=== PATIENT | female | born 1965 | race African-American/Black ===

== ENCOUNTER → 2016-06-30 | Day surgery (SDC) | payer OTHER ==
[~2016-06-30] MED LIST: AMLO5TAB2 PO; AMOX500T PO; AMOXACILLIN; ASPI-482 PO; ASPI81TA2 PO; ATOR10TA PO; CARV25TA PO; CHLO200T2 PO; CYCL5TAB; EPHEDRINE PF IN SALINE 50 MG/5 ML DISP.SYRIN. IV ONE; ESCI10TA10 PO; ESTR0.62 PO; FENTANYL PF 100 MCG/2 ML VIAL. IV PRN; FLUT16SP2 NS; FURO-68 PO; HYDR25CA PO; HYDROMORPHONE 2 MG/ML VIAL. IV PRN; IBUP-1060 PO; IV RINGERS,LACTATED 1000ML 1,000 ML IV SCH; LIDOCAINE 1% 1 ML SYRINGE. ID PRN; LIDOCAINE 2% PF Vial for OR 5 ML VIAL. ONE; LOSA50TA2 PO; METO50TA2 PO; MORPHINE SULFATE 2 MG/ML DISP.SYRIN. IV PRN; OMEP40CA5 PO; OXCA300T PO; OXYC-250 PO; PANT40TA3 PO; PROCHLORPERAZINE 10 MG/2 ML VIAL. IV PRN; PROPOFOL 20 ML IV ONE; ROPI0.252 PO; ROPI0.5T2; SAXA5TAB PO; SENN1TAB9 PO; SPIR25TA3 PO; SUCR1TAB29 PO; THORAZINE; TOPI50TA38 PO; TRAZ100T12 PO; VARE1TAB5 PO; ZOLP10TA4 PO
--- NOTE | 2016-06-30 08:59 | PDOC1 ---
HISTORY & PHYSICAL H&P Sharda Mac [id number] 1965 06/11/2016 01:40 PM 04/13 nPicker [facility], [facility] OUR PATIENTS COME FIRST [address] [place], [place] [id number] Ph. [phone] Patient: Sharda Mac Date of : 1965 Date: 06/11/2016 1:40 PM Visit Type: Office Visit This 51 year old female presents for Gastric Ulcer. History of Present Illness: 1. Gastric Ulcer Patient is here for followup for her gastric ulcer. Patient has not been having any abdominal pain, nausea or vomiting. Patient has been taking her medication. Patient has been off all NSAID's. Discussed the need to schedule for repeat EGD to document the healing of gastric ulcer. INTAKE COMMENTS: Intake Comments: Nurse Note: the pt is here today for a follow-up for a Gastric Ulcer. PROBLEM LIST: Problem Description Onset Date Tendinitis of left rotator cuff 02/22/2015 Primary osteoarthritis of left knee 02/12/2015 Left knee pain 02/12/2015 Chronic gastric ulcer 06/12/2015 Controlled type 2 diabetes mellitus with complication, without long-term current use of insulin 10/26/2015 Benign essential hypertension 08/09/2010 Hyperlipidemia 08/09/2010 Congestive heart failure 08/09/2010 Acute renal failure syndrome 08/09/2010 Sleep apnea 06/18/2012 Acute bacterial sinusitis 03/23/2015 Diabetes mellitus type II 08/09/2010 Shoulder pain, left 02/22/2015 Tobacco dependence syndrome 04/20/2012 Smoking addiction 07/20/2014 Tremor of both hands 10/05/2015 Chronic renal impairment 10/08/2011 Morbid obesity 12/10/2011 PAST MEDICAL/SURGICAL HISTORY (Detailed) Disease/disorder Onset Date Management Date Comments Hysterectomy 2003 chronic gastritis EGD with biopsy 01/19/2014 Congestive heart failure 2010 cardiac catheterization Diabetes Diverticulosis 02/25/2011 colonoscopy with biopsy 02/25/2011 esophagitis gastric erosion at the pyloric channel gastric ulcer Gastric Ulcer EGD w/Biopsy 05/01/2014 Hiatal hernia Hyperlipidemia Hypertension DIAGNOSTICS HISTORY: Test Ordered Interpretation Result completed COLONOSCOPY AND BIOPSY 02/25/2011 Abnormal Imp: Diverticulosis. No polyps. 02/25 [facility] GI ENDOSCOPY, DIAGNOSIS 08/24/2012 Imp: Duodenal ulcer in the pyloric channel area closer to the duodenal surface. Gastritis. Esopahgitis. BX: Diffuse marked antral gastritis. Positive for Helicobacter pylori. 09/02/2012 US EXAM, ABDOM, COMPLETE 10/11/2012 Imp: No significant sonographic abnormality of the abdomen is seen. 11/01/2012 EGD 02/14/2014 abnormal Imp: Persistent gastric ulcer, reflux esophagitis, BX: reactive gastropathy with ulceration and mild chronic inflammation 05/01/2014 EGD 01/29/2015 abnormal Imp: Small hiatal hernia. Mild reflux esophagitis. Antral ulcer appears to be in a healing stage. Antral gastritis. BX: Chronic Gastritis, mild. Segment of acute inflammatory exudate consistent with Ulcer. EGD 12/18/2015 abnormal Imp: Persistent antral ulcers difficult to heal on a intensive therapy. Reflux esophagitis. BX: Segments of acute inflammatory exudate and strips of gastric foveolar epithelium, consistent with gastric ulcer. 01/21/2016 Test Ordered Ordering Comments Modifier COLONOSCOPY AND BIOPSY 02/25/2011 Gastroenterology UPPA GI ENDOSCOPY, DIAGNOSIS 08/24/2012 US EXAM, ABDOM, COMPLETE 10/11/2012 EGD 02/14/2014 EGD 01/29/2015 EGD 12/18/2015 Patient is postmenopausal. Medications (Active): Started Medication Directions Instruction Stopped 04/15/2016 amlodipine 5 mg tablet TAKE 1 TABLET BY ORAL ROUTE EVERY DAY 04/15/2016 Aspir-81 81 mg tablet,delayed release take 1 tablet (81MG) by oral route every day 04/15/2016 Carafate 1 gram tablet TAKE 1 TABLET BY ORAL ROUTE 3 TIMES EVERY DAY ON AN EMPTY STOMACH 1 HOUR BEFORE MEALS AND AT BEDTIME 04/15/2016 Coreg 25 mg tablet TAKE 1 TABLET BY ORAL ROUTE 2 TIMES EVERY DAY WITH FOOD 04/15/2016 Cozaar 50 mg tablet TAKE 1 TABLET (50MG) BY ORAL ROUTE 2 TIMES EVERY DAY 04/15/2016 cyclobenzaprine 5 mg tablet take 1 tablet by ORAL route 2 times every day 04/15/2016 Flonase 50 mcg/actuation nasal spray,suspension spray 1 spray by intranasal route 2 times every day in each nostril 04/15/2016 Lasix 40 mg tablet TAKE 1 TABLET (40MG) BY ORAL ROUTE EVERY DAY 04/15/2016 Lexapro 10 mg tablet TAKE 1 TABLET (10MG) BY ORAL ROUTE EVERY DAY 04/15/2016 Lipitor 10 mg tablet TAKE 1 TABLET (10MG) BY ORAL ROUTE EVERY DAY 04/15/2016 Maxalt 10 mg tablet take 1 tablet by oral route once, may repeat at 2 hour intervals; do not exceed 30 mg in 24 hours 04/15/2016 omeprazole 40 mg capsule,delayed release TAKE 1 CAPSULE BY ORAL ROUTE EVERY DAY BEFORE A MEAL 04/15/2016 Onglyza 5 mg tablet TAKE 1 TABLET (5MG) BY ORAL ROUTE EVERY DAY 06/10/2016 Percocet 10 mg-325 mg tablet take 1 tablet by oral route [id number] as needed for pain 07/05/2016 04/15/2016 Senna-S 8.6 mg-50 mg tablet TAKE 2 TABLET BY ORAL ROUTE EVERY DAY 04/15/2016 spironolactone 25 mg tablet TAKE 1 TABLET (25MG) BY ORAL ROUTE EVERY DAY 04/15/2016 Voltaren 1 % topical gel apply 4 Gram by Topical route 4 times every day please fill as generic 04/15/2016 zolpidem 10 mg tablet take 1 tablet (10MG) by oral route every day at bedtime Allergies: Ingredient Reaction Medication Name Comment VALSARTAN Diovan LISINOPRIL Cough PRINIVIL REVIEW OF SYSTEMS System Neg/Pos Details Constitutional Negative Chills, fever, malaise and weight loss. ENMT Negative Sore throat. Eyes Negative Double vision. Respiratory Negative Dyspnea and wheezing. Cardio Negative Chest pain and irregular heartbeat/palpitations. GI Positive See HPI. GI Negative See HPI. Negative Dysuria and hematuria. Endocrine Negative Cold intolerance and heat intolerance. Psych Negative Anxiety. Integumentary Negative Hives and rash. MS Negative Joint pain. Cuco/Lymph Negative Easy bleeding and easy bruising. Allergic/Immuno Negative Animals at home and food allergies. Reproductive Positive The patient is post-menopausal. VITAL SIGNS Time BP mm/Hg Pulse /min Resp /min Temp F Ht ft Ht in Ht cm Wt lb Wt kg BMI kg/ m2 BSA m2 O2 Sat% 1:42 PM 134/86 85 98.1 5.0 2.00 157.48 252.00 114.305 46.09 87 Time Comments 1:42 PM PCP aware of O2 Time Measured by 1:42 PM Mabel Pfeiffer PHYSICAL EXAM: Exam Findings Details Constitutional Normal Well developed. Eyes Normal Conjunctiva - Right: Normal, Left: Normal. Sclera - Right: Normal, Left: Normal. Nasopharynx Normal Lips/teeth/gums - Normal. Neck Exam Normal Inspection - Normal. Thyroid gland - Normal. Respiratory Normal Inspection - Normal. Auscultation - Normal. Cardiovascular Normal Regular rate and rhythm. No murmurs, gallops, or rubs. Vascular Normal Pulses - Carotids: Normal, Femoral: Normal, Dorsalis pedis: Normal. Abdomen Normal Inspection - Normal. Anterior palpation - No guarding. No abdominal tenderness. No hepatic enlargement. No splenic enlargement. No hernia. No Ascites. Skin Normal Inspection - Normal. Extremity Normal No edema. Psychiatric Normal Oriented to time, place, person, and situation. Appropriate mood and effect. The patient was checked out at 1:42 PM by aMbel Pfeiffer. Assessment/Plan # Detail Type Description 1. Assessment Chronic gastric ulcer without hemorrhage and without perforation (K25.7). [place] [facility] [place] Further diagnostic evaluations ordered today include(s) EGD to be performed today. She is to schedule a follow-up visit with Jarod Oconnell MD upon completion of work-up Electronically signed by: Jarod Oconnell MD 06/11/2016 04:16 PM Document generated by: Jarod Oconnell 06/11/2016 04:16 PM Corrie Rao MD, Family Practice; Ramírez Vu MD Internal Medicine; Lee Wilder MD, Internal Medicine; Sarmad Oconnell MD Internal Medicine; Jarod Oconnell MD, Gastroenterology; Wale Hill MD, Rheumatology, S. Christopher Bragg, Physical Medicine/Rehab Avinash Bryson APRN ------ 06/30/16 Patient seen and examined. No change in H&P. JAROD OCONNELL MD Jun 30, 2016 08:59
[2016-06-30 09:56] VITALS: BP 113/74
--- NOTE | 2016-06-30 10:08 | PDOC4 ---
GI OP Report - Dr. Valdez Date/Time DATE: 06/30/16 TIME: 10:07 Attending Physician Dixon Valdez MD Referring Physician Indications Follow-up of chronic gastric ulcer Pre-Op See the Anesthesia note for documentation of the administered medications Procedures Upper GI endoscopy Findings - Hiatus hernia. - LA Grade A esophagitis. - Normal stomach. - Normal examined duodenum. - No specimens collected. Plan - Discharge patient to home. - Patient has a contact number available for emergencies. The signs and symptoms of potential delayed complications were discussed with the patient. Return to normal activities tomorrow. Written discharge instructions were provided to the patient. - Resume regular diet. - Discontinue Carafate. - Continue Omeprazole 20 mg daily. - Return to my office as needed. DIXON VALDEZ MD Jun 30, 2016 10:08
== END | disposition home or self-care (01) ==
LOC: ENDOS 08:28
PROVIDERS: ATTEND Internal Medicine Gastroenterology
DX: K44.9 Diaphragmatic hernia without obstruction or gangrene (principal); K20.9 Esophagitis, unspecified; K25.7 Chronic gastric ulcer without hemorrhage or perforation; E78.00 Pure hypercholesterolemia, unspecified; I10 Essential (primary) hypertension; E66.9 Obesity, unspecified; D41.9 Neoplasm of uncertain behavior of unspecified urinary organ; D32.9 Benign neoplasm of meninges, unspecified; E11.9 Type 2 diabetes mellitus without complications; F20.9 Schizophrenia, unspecified; D64.9 Anemia, unspecified; Z90.710 Acquired absence of both cervix and uterus; Z90.49 Acquired absence of other specified parts of digestive tract; Z98.51 Tubal ligation status
CPT/HCPCS: 43235; 82947; J2704

== ENCOUNTER → 2016-09-04 | Outpatient (CLI) | payer OTHER ==
[2016-06-30 09:56] VITALS: BP 113/74
[~2016-09-04] MED LIST changes: -EPHEDRINE PF IN SALINE 50 MG/5 ML DISP.SYRIN. IV ONE; -FENTANYL PF 100 MCG/2 ML VIAL. IV PRN; -HYDROMORPHONE 2 MG/ML VIAL. IV PRN; -IV RINGERS,LACTATED 1000ML 1,000 ML IV SCH; -LIDOCAINE 1% 1 ML SYRINGE. ID PRN; -LIDOCAINE 2% PF Vial for OR 5 ML VIAL. ONE; -MORPHINE SULFATE 2 MG/ML DISP.SYRIN. IV PRN; -PROCHLORPERAZINE 10 MG/2 ML VIAL. IV PRN; -PROPOFOL 20 ML IV ONE
--- NOTE | 2016-09-04 21:58 | EEG ---
DATE OF SERVICE: 09/04/2016 EEG NUMBER: [id number] OBJECTIVE: This is a 51-year-old -[place] female patient with history of abnormal movements. EEG was requested to evaluate her cerebral activity and to help rule out seizure. METHODS: Twenty electrodes were applied according to the international 10-20 electrode placement system. EKG monitoring, hyperventilation, intermittent photic stimulation, monopolar and bipolar montages are routinely utilized. The record was obtained on a digital system with video monitoring. FINDINGS: 1. Background: The patient was recorded in the awake and drowsy states. No sleep state was recorded. The overall background amplitude is 10-20 microvolts. A posterior dominant rhythm of 8 Hz is observed. 2. Abnormalities: No specific epileptiform discharge or electrographic seizure is seen. No focal or diffuse slowing. 3. Activation: Hyperventilation was performed with poor efforts. Intermittent photic stimulation was performed with photic driving. No specific epileptiform discharge or electrographic seizure induced by hyperventilation or intermittent photic stimulation. IMPRESSION: This EEG is within the normal limits of the study for the awake and drowsy states. No sleep state was recorded. No focal, lateralizing, specific epileptiform discharge or electrographic seizure is seen. However, a normal EEG does not rule out seizure. CORA FREIRE MD DR: SOURAV/julio césar JOB#: [id number] / [id number]
== END | disposition home or self-care (01) ==
LOC: RT 08:46
PROVIDERS: ATTEND Psychiatry & Neurology Neurology
DX: R25.1 Tremor, unspecified (principal)
CPT/HCPCS: 95816

== ENCOUNTER 2017-02-03 13:37 | Emergency (ER) | payer OTHER ==
[~2017-02-03] VITALS: Ht 157.5 cm; Wt 114.8 kg
[~2017-02-03 13:37] MED LIST changes: +ASPI-630 PO; -ASPI81TA2 PO; -ESCI10TA10 PO; +LEXAPRO10 MG PO; -OXYC-250 PO; +OXYC-328 PO; -SUCR1TAB29 PO; +SUCR1TAB35 PO
[2017-02-03 13:40] VITALS: BP 160/95
--- NOTE | 2017-02-03 14:23 | PHYS DOC ---
Past Medical History Past Medical History: CHF, Diabetes-Type II, Hypertension, Schizophrenia Past Surgical History: , Hysterectomy Additional Past Surgical Histo: BREAST BIOPSY Additional Information: 4 CIGARETTES PER DAY Alcohol Use: None Drug Use: None Adult General Chief Complaint Chief Complaint: BACK PAIN OR INJURY [facility] HPI Patient is a 51 year old female presents to the emergency department stating that she fell in the bathtub about 3:00 this morning. She is complaining of left flank pain and discomfort. She denies any urinary problems denies any blood in her urine. She denies any spinal tenderness. Patient does state that she took a Percocet for the pain and discomfort. She denies any numbness or tingling down the lower extremities. Patient does ambulate with O2 at home. Review of Systems Review of Systems Constitutional: Denies fever or chills [] Eyes: Denies change in visual acuity, redness, or eye pain [] HENT: Denies nasal congestion or sore throat [] Respiratory: Denies cough or shortness of breath [] Cardiovascular: No additional information not addressed in HPI [] GI: Denies abdominal pain, nausea, vomiting, bloody stools or diarrhea [] : Denies dysuria or hematuria [] Musculoskeletal: left flank pain Integument: Denies rash or skin lesions [] Neurologic: Denies headache, focal weakness or sensory changes [] Endocrine: Denies polyuria or polydipsia [] Allergies Allergies Allergies Coded Allergies Type Severity Reaction Last Updated Verified No Known Drug Allergies 06/30/16 No Physical Exam Physical Exam Constitutional: Well developed, well nourished, no acute distress, non-toxic appearance. [] HENT: Normocephalic, atraumatic, bilateral external ears normal, oropharynx moist, no oral exudates, nose normal. [] Eyes: PERRLA, EOMI, conjunctiva normal, no discharge. [] Neck: Normal range of motion, no tenderness, supple, no stridor. [] Cardiovascular:Heart rate regular rhythm, no murmur [] Lungs & Thorax: Bilateral breath sounds clear to auscultation [] Skin: Warm, dry, no erythema, no rash. [] Back: No cervical spine, thoracic spine or lumbar spine tenderness, no crepitus no deformities and no step-offs noted. Left CVA tenderness. [] Extremities: No tenderness, no cyanosis, no clubbing, ROM intact, no edema. [] Neurologic: Alert and oriented X 3, normal motor function, normal sensory function, no focal deficits noted. [] Psychologic: Affect normal, judgement normal, mood normal. [] Current Patient Data Vital Signs Vital Signs Date Time Temp Pulse Resp B/P (MAP) Pulse Ox O2 Delivery O2 Flow Rate FiO2 02/03/17 13:40 98.8 81 20 93 Nasal Cannula 2.0 98.8 Lab Values Laboratory Tests Test 02/03/17 14:28 Urine Collection Type Unknown Urine Color Yellow Urine Clarity Clear Urine pH 6.0 Urine Specific [place] <=1.005 Urine Protein Negative mg/dL (NEG-TRACE) Urine Glucose (UA) Negative mg/dL (NEG) Urine Ketones (Stick) Negative mg/dL (NEG) Urine Blood Negative (NEG) Urine Nitrite Negative (NEG) Urine Bilirubin Negative (NEG) Urine Urobilinogen Dipstick 0.2 mg/dL (0.2 mg/dL) Urine Leukocyte Esterase Negative (NEG) Urine RBC Occ /HPF (0-2) Urine WBC Occ /HPF (0-4) Urine Squamous Epithelial Cells Few /LPF Urine Bacteria 0 /HPF (0-FEW) EKG EKG [] Radiology/Procedures Radiology/Procedures [] Course & Med Decision Making Course & Med Decision Making Pertinent Labs and Imaging studies reviewed. (See chart for details) Urine was negative for blood or leukocyte Estrace. Patient will be discharged home with recommendations to use her pain medication Percocet that she hasn't home. She was also encouraged to use ibuprofen to help with inflammation and pain. She was recommended to use ice packs on 20 minutes off 20 minutes several times a day. She'll be provided with Flexeril 5 mg. She was instructed that this medication will cause extreme drowsiness do not take any be alert and oriented. She was also instructed that this medication will cause increased pulse. Patient will be discharged home with recommendations to follow-up with her primary care physician next 7-10 days. Patient agrees with discharge instructions treatment regimens and follow-up recommendations. [] Dragon Disclaimer Dragon Disclaimer This electronic medical record was generated, in whole or in part, using a voice recognition dictation system. Departure Departure Impression: Primary Impression: Left flank pain Disposition: HOME, SELF-CARE Condition: STABLE Referrals: LUCAS ORTIZ MD (PCP) Patient Instructions: Flank Pain, [id number] Additional Instructions: Activity as tolerated Medication as prescribed Flexeril will cause will cause drowsiness do not take if you need to be alert and oriented ice packs on 20 minutes and off 20 minutes several times a day Followup with your primary care provider in 7-10 days Return to emergency department as needed for signs and symptoms that become worse. Scripts Cyclobenzaprine Hcl (CYCLOBENZAPRINE HCL) 5 Mg Tablet 1 TAB PO TID Y for MUSCLE SPASMS, #15 TAB Prov: TERRANCE JUAREZ APRN 02/03/17 TERRANCE JUAREZ APRN Feb 03, 2017 14:23
[2017-02-03 14:43] LABS: BILIRUBIN,URINE NEGATIVE (NEG); GLUCOSE,URINE NEGATIVE (NEG); NITRITE,URINE NEGATIVE (NEG); PROTEIN,URINE NEGATIVE (NEG-TRACE); UROBILINOGEN,URINE 0.2 mg/dL (0.2 mg/dL)
[2017-02-03 15:05] LABS: BACTERIA,URINE 0 /HPF (0-FEW); RBC,URINE OCC /HPF (0-2); SQUAMOUS EPITHELIAL CELL,UR FEW /LPF; WBC,URINE OCC /HPF (0-4)
[2017-02-03] MEDS ORDERED: CYCL5TAB PO (15:14)
== END 2017-02-03 15:20 | disposition home or self-care (01) ==
LOC: ER 13:37
DX: R10.9 Unspecified abdominal pain (principal); I11.0 Hypertensive heart disease with heart failure; I50.9 Heart failure, unspecified; F20.9 Schizophrenia, unspecified; E11.9 Type 2 diabetes mellitus without complications; Z99.81 Dependence on supplemental oxygen; F17.210 Nicotine dependence, cigarettes, uncomplicated; W18.2XXA Fall in (into) shower or empty bathtub, initial encounter; Y93.E1 Activity, personal bathing and showering; Y99.8 Other external cause status; Y92.89 Other specified places as the place of occurrence of the external cause
CPT/HCPCS: 81001; 99283

== ENCOUNTER → 2017-04-07 | Outpatient (CLI) | payer OTHER ==
[~2017-04-07] MED LIST changes: +CYCL5TAB PO; -METO50TA2 PO; +METO50TA6 PO
--- NOTE | 2017-04-07 11:43 | RAD ---
DATE: April 07, 2017 EXAM: DIGITAL SCREEN BILAT W/CAD HISTORY: Screening study. COMPARISON: 2014 and 2015 This study was interpreted with the benefit of Computerized Aided Detection (CAD). FINDINGS: The breast parenchyma is scattered and mildly dense. There are no dominant suspicious masses, suspicious microcalcifications or evidence of architectural distortion. IMPRESSION: No mammographic indicators for malignancy. BI-RADS CATEGORY: 1 NEGATIVE RECOMMENDED FOLLOW-UP: 12M 12 MONTH FOLLOW-UP PQRS compliance statement: Patient information was entered into a reminder system with a target due date for the next mammogram. Mammography is a sensitive method for finding small breast cancers, but it does not detect them all and is not a substitute for careful clinical examination. A negative mammogram does not negate a clinically suspicious finding and should not result in delay in biopsying a clinically suspicious abnormality. "Our facility is accredited by the [employer] Mammography Program." The patient's breast density may affect the ability of mammography to detect breast cancer. There are 4 categories of breast density, A, B, C and D. Breast density A means that most of the breast tissue is replaced with adipose tissue and therefore is not dense. Breast density B means that the breast tissue is mildly dense and scattered. Breast density C means that the breast tissue is heterogeneously dense. Breast density D means that the breast tissue is very dense. Breast densities especially C and D may decrease the sensitivity of mammography to detect breast cancer. Therefore, the patient may benefit from 3-D breast mammography (3D breast tomography) as a part of their screening mammogram. Insurance may or may not pay for this additional imaging. The patient's breast density based on today's mammogram is category B.
== END | disposition home or self-care (01) ==
LOC: MAMMO 09:19
PROVIDERS: ATTEND Internal Medicine
DX: Z12.31 Encounter for screening mammogram for malignant neoplasm of breast (principal)
CPT/HCPCS: G0202; 77067

== ENCOUNTER → 2018-02-24 | Outpatient (CLI) | payer OTHER ==
[~2018-02-24] MED LIST changes: -AMLO5TAB2 PO; +AMLO5TAB7 PO; -OXCA300T PO; +OXCA300T19 PO; -ROPI0.252 PO; +ROPI0.254 PO; -SPIR25TA3 PO; +SPIR25TA5 PO; +TRAZ-86 PO; -TRAZ100T12 PO
--- NOTE | 2018-02-24 09:11 | CARD ---
MR#: [id number] Date of Study: 02/24/2018 Ordering Physician: ROLAN MCKEON, Referring Physician: ROLAN MCKEON Tech: Angeli Adkins RDCS APPROVED REPORT EXAM: Two-dimensional and M-mode echocardiogram with Doppler and color Doppler. Other Information Quality : AverageHR: 71bpm Rhythm : NSR INDICATION Hypertension/HCVD 2D DIMENSIONS RVDd3.3 (2.9-3.5cm)Left Atrium(2D)3.3 (1.6-4.0cm) IVSd1.5 (0.7-1.1cm)Aortic Root(2D)2.8 (2.0-3.7cm) LVDd5.0 (3.9-5.9cm)LVOT Diameter2.2 (1.8-2.4cm) PWd1.3 (0.7-1.1cm)LVDs3.6 (2.5-4.0cm) FS (%) 28.3 %SV64.8 ml M-Mode DIMENSIONS Left Atrium(MM)3.72 (2.5-4.0cm)Aortic Root3.28 (2.2-3.7cm) Aortic Valve AoV Peak Mateo.132.7cm/sAoV VTI23.8cm AO Peak GR.7.0mmHgLVOT Peak Mateo.112.4cm/s AO Mean GR.4mmHgAVA (VMAX)3.14cm2 FRANCIE (VTI)3.00cm2 Mitral Valve MV E Rzkgujix67.7cm/sMV E Peak Gr.3mmHg MV DECEL EMES527ggIS A Njlxshmj24.5cm/s MV E Mean Gr.1mmHgE/A Ratio0.7 MV A [id number] Pulmonary Valve PV Peak Cjhbkxbu63.6cm/s Tricuspid Valve TR P. Rtelhhhi758nt/sRAP NKSJHNIR4caIf TR Peak Gr.27bkHtMQHP69dtEv Pulmonary Vein S1 Avuromob81.9cm/sD2 Hncudapl49.1cm/s PVa [id number] LEFT VENTRICLE The left ventricle is normal size. There is mild concentric left ventricular hypertrophy. The left ve ntricular systolic function is normal and the ejection fraction is within normal range. The Ejection Fraction is 50-55%. There is normal LV segmental wall motion. Transmitral Doppler flow pattern is Gra de I-abnormal relaxation pattern. RIGHT VENTRICLE The right ventricle is normal size. There is normal right ventricular wall thickness. The right ventr icular systolic function is normal. ATRIA The left atrium size is normal. The right atrium size is normal. The interatrial septum is intact wit h no evidence for an atrial septal defect or patent foramen ovale as noted on 2-D or Doppler imaging. AORTIC VALVE The aortic valve is trileaflet. The aortic valve is normal in structure and function. Doppler and Col or Flow revealed no significant aortic regurgitation. There is no significant aortic valvular stenosi s. MITRAL VALVE The mitral valve is normal in structure and function. There is no evidence of mitral valve prolapse. There is no mitral valve stenosis. Doppler and Color-flow revealed trace mitral regurgitation. TRICUSPID VALVE The tricuspid valve is normal in structure and function. Doppler and Color Flow revealed trace tricus pid regurgitation. The PA pressure was estimated at 30 mmHg. There is no tricuspid valve prolapse or vegetation. There is no tricuspid valve stenosis. PULMONIC VALVE The pulmonary valve is normal in structure and function. Doppler and Color Flow revealed no pulmonic valvular regurgitation. There is no pulmonic valvular stenosis. GREAT VESSELS The aortic root is normal in size. The ascending aorta is normal in size. PERICARDIAL EFFUSION There is no evidence of significant pericardial effusion. Critical Notification Critical Value: No <Conclusion> The left ventricle is normal size. The left ventricular systolic function is normal and the ejection fraction is within normal range. The Ejection Fraction is 50-55%. There is mild concentric left ventricular hypertrophy. There is no significant aortic valvular stenosis. Doppler and Color Flow revealed no significant aortic regurgitation. Doppler and Color-flow revealed trace mitral regurgitation. Doppler and Color Flow revealed trace tricuspid regurgitation. The PA pressure was estimated at 30 mmHg. Signed by : Kalyan Polanco MD Electronically Approved : 02/24/2018 09:10:53
== END | disposition home or self-care (01) ==
LOC: ECHO 07:55
PROVIDERS: ATTEND Internal Medicine Cardiovascular Disease
DX: I11.0 Hypertensive heart disease with heart failure (principal); I50.9 Heart failure, unspecified
CPT/HCPCS: 93306

== ENCOUNTER → 2018-06-03 | Outpatient (CLI) | payer OTHER ==
[~2018-06-03] MED LIST changes: +AMLO5TAB10 PO; -AMLO5TAB7 PO; +LOSA-73 PO; -LOSA50TA2 PO; -OXYC-328 PO; +OXYC1TAB22 PO; +SENN-162 PO; -SENN1TAB9 PO
--- NOTE | 2018-06-03 09:42 | RAD ---
DATE: 06/03/2018 EXAM: DIGITAL SCREEN BILAT W/CAD HISTORY: Routine screening COMPARISON: 04/07/2017 This study was interpreted with the benefit of Computerized Aided Detection (CAD). Breast Density: SCATTERED The breast parenchyma shows scattered fibroglandular densities. Breast parenchyma level B. FINDINGS: No new or enlarging breast densities are seen. Minimal benign type calcification is present. No suspicious microcalcifications have developed. IMPRESSION: Stable mammograms without evidence of malignancy. BI-RADS CATEGORY: 1 NEGATIVE RECOMMENDED FOLLOW-UP: 12M 12 MONTH FOLLOW-UP PQRS compliance statement: Patient information was entered into a reminder system with a target due date for the next mammogram. Mammography is a sensitive method for finding small breast cancers, but it does not detect them all and is not a substitute for careful clinical examination. A negative mammogram does not negate a clinically suspicious finding and should not result in delay in biopsying a clinically suspicious abnormality. "Our facility is accredited by the [employer] Mammography Program."
== END | disposition home or self-care (01) ==
LOC: MAMMO 08:16
PROVIDERS: ATTEND Internal Medicine
DX: Z12.31 Encounter for screening mammogram for malignant neoplasm of breast (principal)
CPT/HCPCS: 77067

== ENCOUNTER → 2018-06-30 | Outpatient (CLI) | payer OTHER ==
--- NOTE | 2018-06-30 16:06 | RAD ---
2 view study of the right hip Clinical indications: Right hip pain. Osteoarthritis. FINDINGS: No acute fracture or dislocation or lytic process is seen. No significant arthritic change is evident. IMPRESSION: No significant osseous abnormality of the right hip joint. Electronically signed by: Jose Angel Sierra MD (06/30/2018 4:03 PM) [facility]
== END | disposition home or self-care (01) ==
LOC: RAD 11:18
PROVIDERS: ATTEND Internal Medicine
DX: M25.551 Pain in right hip (principal); M19.90 Unspecified osteoarthritis, unspecified site
CPT/HCPCS: 73502

== ENCOUNTER → 2018-12-16 | Outpatient (CLI) | payer MEDICAID, OTHER ==
[~2018-12-16] MED LIST changes: -PANT40TA3 PO; +PANT40TA77 PO
--- NOTE | 2018-12-16 11:13 | RAD ---
3 views left ankle without comparison for left posterior ankle pain since September. FINDINGS: There is no fracture, dislocation, or acute osseous abnormality. Joints and soft tissues are grossly unremarkable. A small calcaneal enthesophyte is present. IMPRESSION: 1. No acute osseous abnormality. Electronically signed by: Pravin Coyle MD (12/16/2018 11:10 AM) [facility]
--- NOTE | 2018-12-16 11:14 | RAD ---
3 views of left foot without comparison for left ankle pain, possible fracture. FINDINGS: No definite fracture or acute osseous abnormality is identified. Joints and soft tissues are grossly unremarkable. No radiopaque foreign bodies are seen. Small accessory ossicle or dystrophic calcification is present medial to the head of the fifth metatarsal. IMPRESSION: 1. No acute osseous abnormality. Electronically signed by: Pravin Coyle MD (12/16/2018 11:11 AM) [facility]
== END | disposition home or self-care (01) ==
LOC: RAD 10:26
PROVIDERS: ATTEND Internal Medicine
DX: M77.52 Other enthesopathy of left foot and ankle (principal); M25.572 Pain in left ankle and joints of left foot
CPT/HCPCS: 73610; 73630

== ENCOUNTER → 2019-01-12 | Outpatient (CLI) | payer MEDICAID ==
[~2019-01-12] MED LIST changes: +OMEP40CA45 PO; -OMEP40CA5 PO
--- NOTE | 2019-01-12 15:45 | RAD ---
Examination: MRI of the left ankle without contrast History : history of chronic left ankle pain COMPARISON: None available. Technique: Multiplanar, multisequence MR imaging of the left ankle were performed without contrast. FINDINGS: Mild increased T2 signal identified in the distal Achilles tendon at its attachment to the calcaneus likely mild tendinosis. Minimal amount of fluid identified in the retrocalcaneal bursa just anterior to the attachment of the Achilles tendon. The attachment of the plantar fascia to the inferior aspect of the calcaneus grossly appears intact. The flexor tendons, peroneal tendons, anterior extensor compartment tendon grossly appears intact. The ankle mortise appears intact. The deltoid ligament, anterior and posterior tibiofibular, and posterior talofibular ligaments appear intact. There is mild increased signal identified in the anterior talofibular ligament region , however examination is limited due to motion artifact. Fat is present within the sinus tarsi. The alignment of the tarsal bones grossly appears unremarkable. IMPRESSION: 1. Increased signal identified in the distal Achilles tendon at its attachment attachment likely tendinopathy with minimal retrocalcaneal bursal fluid. 2. Minimal questionable increased signal identified in the anterior talofibular ligament region could be secondary to injury or tear at the talar attachment, best visualized on series 5 image 13. Electronically signed by: Jet Lucas MD (01/12/2019 3:42 PM) [facility]
== END | disposition home or self-care (01) ==
LOC: MRI 11:32
PROVIDERS: ATTEND Internal Medicine
DX: M25.572 Pain in left ankle and joints of left foot (principal); E78.5 Hyperlipidemia, unspecified; I11.0 Hypertensive heart disease with heart failure; I50.9 Heart failure, unspecified; N17.9 Acute kidney failure, unspecified; G47.30 Sleep apnea, unspecified; F17.200 Nicotine dependence, unspecified, uncomplicated; E66.01 Morbid (severe) obesity due to excess calories; E11.9 Type 2 diabetes mellitus without complications
CPT/HCPCS: 73721

== ENCOUNTER → 2019-03-21 | Outpatient (CLI) | payer MEDICAID ==
--- NOTE | 2019-03-21 10:02 | CARD ---
MR#: [id number] Date of Study: 03/21/2019 Ordering Physician: ROLAN MCKEON, Referring Physician: ROLAN MCKEON, Tech: Renetta Santizo APPROVED REPORT EXAM: Two-dimensional and M-mode echocardiogram with Doppler and color Doppler. Other Information Quality : AverageHR: 78bpm INDICATION LV Function:Diastolic Chronic Diastolic Heart Failure RISK FACTORS Hypertension Diabetes Smoking 2D DIMENSIONS RVDd3.4 (2.9-3.5cm)Left Atrium(2D)4.2 (1.6-4.0cm) IVSd1.3 (0.7-1.1cm)Aortic Root(2D)2.9 (2.0-3.7cm) LVDd5.1 (3.9-5.9cm)LVOT Diameter2.2 (1.8-2.4cm) PWd1.3 (0.7-1.1cm)LVDs2.9 (2.5-4.0cm) FS (%) 43.7 %SV93.3 ml LVEF(%)74.6 (>50%) Aortic Valve AoV Peak Mateo.154.6cm/sAoV VTI27.5cm AO Peak GR.9.6mmHgLVOT Peak Mateo.110.2cm/s LVOT VTI 21.64cmAO Mean GR.5mmHg FRANCIE (VMAX)1.97vh4INC (VTI)2.88cm2 Mitral Valve MV E Cjoymesb02.6cm/sMV DECEL QBJB850pc MV A Nxkwjwqi77.8cm/sMV E Mean Gr.2mmHg MV VGI39mcD/A Ratio0.7 MVA (PHT)2.98cm2 TDI E/Lateral E'7.3E/Medial E'7.6 Pulmonary Valve PV Peak Vorwmduy858.2cm/sPV Peak Grad.4mmHg Tricuspid Valve TR P. Qiskldhh814cc/sRAP NPKIKZKA8ibUu TR Peak Gr.58ajUcRVCP99wnUx Pulmonary Vein S1 Cahrotmq15.3cm/sD2 Dxkdrzvl74.4cm/s PVa kuamgxit116amzv LEFT VENTRICLE The left ventricle is normal size. There is mild concentric left ventricular hypertrophy. The left ve ntricular systolic function is normal and the ejection fraction is within normal range. The Ejection Fraction is 55%. There is normal LV segmental wall motion. Transmitral Doppler flow pattern is Grade I-abnormal relaxation pattern. RIGHT VENTRICLE The right ventricle is mildly dilated. There is normal right ventricular wall thickness. The right ve ntricular systolic function is normal. ATRIA The left atrium size is normal. The right atrium is mildly dilated. The interatrial septum is intact with no evidence for an atrial septal defect or patent foramen ovale as noted on 2-D or Doppler imagi ng. AORTIC VALVE The aortic valve is normal in structure and function. Doppler and Color Flow revealed trace aortic re gurgitation. There is no significant aortic valvular stenosis. MITRAL VALVE The mitral valve is thickened but opens well. There is no evidence of mitral valve prolapse. There is no mitral valve stenosis. Doppler and Color-flow revealed trace mitral regurgitation. TRICUSPID VALVE The tricuspid valve is not well visualized. Doppler and Color Flow revealed trace tricuspid regurgita tion with an estimated PAP of 34 mmHg. There is no tricuspid valve stenosis. PULMONIC VALVE The pulmonic valve is not well visualized. Doppler and Color Flow revealed no pulmonic valvular regur gitation. There is no pulmonic valvular stenosis. GREAT VESSELS The aortic root is normal in size. The IVC is normal in size and collapses >50% with inspiration. PERICARDIAL EFFUSION There is no evidence of significant pericardial effusion. Critical Notification Critical Value: No <Conclusion> The left ventricular systolic function is normal and the ejection fraction is within normal range. Th e Ejection Fraction is 55%. There is normal LV segmental wall motion. Signed by : Davie Moore, Electronically Approved : 03/21/2019 10:01:53
== END | disposition home or self-care (01) ==
LOC: ECHO 08:11
PROVIDERS: ATTEND Internal Medicine Cardiovascular Disease
DX: I11.0 Hypertensive heart disease with heart failure (principal); I50.32 Chronic diastolic (congestive) heart failure; E11.9 Type 2 diabetes mellitus without complications; F17.210 Nicotine dependence, cigarettes, uncomplicated
CPT/HCPCS: 93306

== ENCOUNTER → 2019-04-14 | Outpatient (CLI) | payer MEDICAID ==
[~2019-04-14] MED LIST changes: +TRAZ-123 PO; -TRAZ-86 PO
--- NOTE | 2019-04-14 12:32 | RAD ---
EXAM: Renal sonogram. HISTORY: Chronic renal disease. TECHNIQUE: Sonographic imaging the kidneys and bladder was performed. COMPARISON: None. FINDINGS: The kidneys are normal in size. There is mild right hydronephrosis. No solid or cystic renal lesion is seen. The post void bladder volume is 72 cc. The aorta is normal in caliber, with the distal aorta partially obscured due to bowel gas. The inferior vena cava is patent. There is incidental suspected hepatic steatosis. IMPRESSION: 1. Mild right hydronephrosis. 2. 72 cc post void bladder residual. Electronically signed by: Vivi Angulo MD (04/14/2019 12:29 PM) [facility]
== END | disposition home or self-care (01) ==
LOC: US 11:33
PROVIDERS: ATTEND Internal Medicine Nephrology
DX: N18.3 Chronic kidney disease, stage 3 (moderate) (principal); N13.30 Unspecified hydronephrosis
CPT/HCPCS: 76770

== ENCOUNTER 2019-05-26 13:51 | Emergency (ER) | payer OTHER, MEDICAID ==
[~2019-05-26] VITALS: Ht 157.5 cm; Wt 106.8 kg
[~2019-05-26 13:51] MED LIST changes: -ROPI0.5T2; +ROPI0.5T4
[2019-05-26] MEDS ORDERED: fentaNYL PF VIAL 100 MCG/2 ML VIAL IM ONE (14:15)
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
[2019-05-26] MEDS ORDERED: fentaNYL PF VIAL 100 MCG/2 ML VIAL IV STA (14:28)
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
[2019-05-26] MEDS ORDERED: ORPH100T PO (15:19)
[2019-05-26] MEDS ORDERED: IBUP-1027 PO (15:19)
[2019-05-26 15:22] VITALS: BP 157/81
== END 2019-05-26 15:37 | disposition home or self-care (01) ==
LOC: ER 13:51
DX: M54.6 Pain in thoracic spine (principal); R55 Syncope and collapse; I11.0 Hypertensive heart disease with heart failure; I50.9 Heart failure, unspecified; E11.9 Type 2 diabetes mellitus without complications; F20.9 Schizophrenia, unspecified; F17.200 Nicotine dependence, unspecified, uncomplicated; Z90.710 Acquired absence of both cervix and uterus; Z98.890 Other specified postprocedural states; V89.2XXA Person injured in unspecified motor-vehicle accident, traffic, initial encounter; Y93.89 Activity, other specified; Y92.413 State road as the place of occurrence of the external cause; Y99.8 Other external cause status
CPT/HCPCS: 70450; 72125; 72128; 72131; 96374; 99285; J3010

== ENCOUNTER → 2019-06-06 | Outpatient (CLI) | payer MEDICAID, OTHER ==
[2019-05-26 15:22] VITALS: BP 157/81
[~2019-06-06] MED LIST changes: +IBUP-1027 PO; +ORPH100T PO
--- NOTE | 2019-06-07 09:07 | RAD ---
History: Routine screening. Technique: Bilateral digital mammographic routine views were obtained with CAD - computer aided detection. Comparison: 06/03/2018. Findings: Breast Tissue Density C : The breast tissue is heterogeneously dense. Scattered fibroglandular elements may obscure underlying pathology. There are no suspicious masses, microcalcifications or areas of architectural distortion. Impression: No suspicious findings. BI-RADS Category 1: Negative. Normal interval followup. Your mammogram demonstrates that you have dense breast tissue, which could hide abnormalities, and if you have other risk factors for breast cancer that have been identified, you might benefit from supplemental screening tests that may be suggested by your ordering physician. Dense breast tissue, in and of itself, is a relatively common condition. This information is not provided to cause undue concern, but rather to raise your awareness and to promote discussion with your physician regarding the presence of other risk factors, in addition to dense breast tissue. A report of your mammography results will be sent to you and your physician. You should contact your physician if you have any questions or concerns regarding this report. A mammogram does not have 100% sensitivity and therefore a negative imaging study should not delay further work up of a suspicious abnormality. The patient will receive a letter with the results in the mail. Patient information is entered into the reminder system with a target due date for the next screening mammogram. The patient will receive a reminder. "Our facility is accredited by the [employer] Mammography Program." BI-RADS 1 -- negative findings (within normal)
== END | disposition home or self-care (01) ==
LOC: MAMMO 07:51
PROVIDERS: ATTEND Internal Medicine
DX: Z12.31 Encounter for screening mammogram for malignant neoplasm of breast (principal); N64.89 Other specified disorders of breast
CPT/HCPCS: 77067

== ENCOUNTER → 2019-06-22 | Outpatient (CLI) | payer MEDICAID ==
[2019-05-26 15:22] VITALS: BP 157/81
--- NOTE | 2019-06-22 12:38 | RAD ---
Skeletal survey 06/22/2019 Clinical history: Elevated protein. Low back pain. A PA digital radiograph of the chest, AP digital radiograph of the pelvis, Lateral digital radiographs of the skull, AP digital radiographs of the left and right humerus, AP radiographs of both forearms, 2 AP digital radiographs of the left and right femur, AP radiographs of both the left and right tibia and fibula, and AP and lateral digital radiographs of the cervical, thoracic and lumbar spine were obtained as part of a skeletal survey. The cardiac silhouette is borderline enlarged. The thoracic aorta is mildly tortuous. No acute pulmonary infiltrate is seen. No pleural effusion or pneumothorax is noted. No lytic or blastic skeletal lesion is seen. The patient is largely edentulous. Degenerative changes are seen involving the mid and lower cervical spine, the thoracic spine and throughout the lumbar spine consisting of varying degrees of disc space narrowing, vertebral endplate sclerosis and minimal to mild anterior and posterior vertebral body osteophyte formation. Degenerative changes are seen involving the uncovertebral and facet joints throughout the mid and lower cervical disc spaces. Degenerative changes are seen involving the facet joints of the lower thoracic and lower lumbar spine. Mild degenerative changes are seen involving both glenohumeral joints and AC joints. Mild to moderate degenerative changes are seen involving both hips. Mild degenerative changes are seen involving the medial compartments of both knees. The abdominal bowel gas pattern is nonobstructive. Calcifications are seen within the pelvis consistent with phleboliths. Impression: Negative study. No lytic or blastic lesion is seen. Electronically signed by: Dylon Reese MD (06/22/2019 12:35 PM) [facility] – [place]
== END | disposition home or self-care (01) ==
LOC: RAD 08:15
PROVIDERS: ATTEND Internal Medicine Hematology & Oncology
DX: M48.05 Spinal stenosis, thoracolumbar region (principal); M48.02 Spinal stenosis, cervical region; M25.78 Osteophyte, vertebrae; D47.2 Monoclonal gammopathy; G95.89 Other specified diseases of spinal cord; I87.8 Other specified disorders of veins; M47.895 Other spondylosis, thoracolumbar region; M51.35 Other intervertebral disc degeneration, thoracolumbar region; M19.012 Primary osteoarthritis, left shoulder; M19.011 Primary osteoarthritis, right shoulder; M16.0 Bilateral primary osteoarthritis of hip
CPT/HCPCS: 77075

== ENCOUNTER → 2020-06-14 | Outpatient (CLI) | payer MEDICAID ==
[~2020-06-14] MED LIST changes: +AMLO-186 PO; -AMLO5TAB10 PO
--- NOTE | 2020-06-14 11:41 | CARD ---
MR#: [id number] Date of Study: 06/14/2020 Ordering Physician: ROLAN MCKEON, Referring Physician: ROLAN MCKEON Tech: Lakshmi Sanchez [facility] APPROVED REPORT EXAM: Two-dimensional and M-mode echocardiogram with Doppler and color Doppler. Other Information Quality : AverageHR: 77bpm Rhythm : NSR INDICATION Dyspnea RISK FACTORS Hypertension Obesity Diabetes 2D DIMENSIONS RVDd3.8 (2.9-3.5cm)Left Atrium(2D)4.4 (1.6-4.0cm) IVSd1.2 (0.7-1.1cm)Aortic Root(2D)3.4 (2.0-3.7cm) LVDd5.7 (3.9-5.9cm)LVOT Diameter2.5 (1.8-2.4cm) PWd1.1 (0.7-1.1cm)LVDs4.4 (2.5-4.0cm) FS (%) 23.0 %SV72.0 ml LVEF(%)45.5 (>50%) Aortic Valve AoV Peak Mateo.148.1cm/sAoV VTI26.6cm AO Peak GR.8.8mmHgLVOT Peak Mateo.123.7cm/s AO Mean GR.4mmHgAVA (VMAX)4.04cm2 Mitral Valve MV E Iabzcibh48.5cm/sMV DECEL ASYL180lr MV A Nllnpfjc30.1cm/sE/A Ratio0.6 Tricuspid Valve TR P. Sirxiwgw460tv/sTR Peak Gr.26mmHg Pulmonary Vein S1 Pvpokfpo52.4cm/sD2 Dcvvpuwb68.1cm/s PVa [id number] LEFT VENTRICLE The left ventricle is normal size. There is mild concentric left ventricular hypertrophy. The left ve ntricular systolic function is normal. The ejection fraction is 50-55%. There is normal LV segmental wall motion. Transmitral Doppler flow pattern is Grade I-abnormal relaxation pattern. No left ventric le thrombus noted on this study. RIGHT VENTRICLE The right ventricle is normal size. The right ventricle is borderline hypertrophied. The right ventri cular systolic function is normal. ATRIA The left atrium size is normal. The right atrium size is normal. The interatrial septum is intact wit h no evidence for an atrial septal defect or patent foramen ovale as noted on 2-D or Doppler imaging. AORTIC VALVE The aortic valve is normal in structure and function. Doppler and Color Flow revealed trace aortic re gurgitation. There is no significant aortic valvular stenosis. MITRAL VALVE The mitral valve is normal in structure and function. There is no evidence of mitral valve prolapse. There is no mitral valve stenosis. Doppler and Color-flow revealed mild mitral regurgitation. TRICUSPID VALVE The tricuspid valve is normal in structure and function. Doppler and Color Flow revealed trace tricus pid valve regurgitation. Estimated PAP 30 mmHg. There is no tricuspid valve stenosis. PULMONIC VALVE The pulmonary valve is normal in structure and function. Doppler and Color Flow revealed trace pulmon ic valvular regurgitation. GREAT VESSELS The aortic root is normal in size. The ascending aorta is normal in size. The IVC is normal in size a nd collapses >50% with inspiration. PERICARDIAL EFFUSION There is no evidence of significant pericardial effusion. Critical Notification Critical Value: No <Conclusion> The left ventricular systolic function is normal. The ejection fraction is 50-55%. Transmitral Doppler flow pattern is Grade I-abnormal relaxation pattern. Mild mitral regurgitation. Trace tricuspid valve regurgitation. Estimated PAP 30 mmHg. There is no evidence of significant pericardial effusion. Signed by : Rolan Mckeon, Electronically Approved : 06/14/2020 11:40:29
== END ==
LOC: ECHO 07:41
PROVIDERS: ATTEND Internal Medicine Cardiovascular Disease
DX: I34.0 Nonrheumatic mitral (valve) insufficiency (principal); I50.32 Chronic diastolic (congestive) heart failure
CPT/HCPCS: 93306

== ENCOUNTER → 2020-06-14 | Outpatient (CLI) | payer MEDICAID ==
--- NOTE | 2020-06-15 16:17 | RAD ---
DATE: 06/14/2020 11:22 AM EXAM: DIGITAL SCREEN BILAT W/CAD HISTORY: Screening COMPARISON: 06/06/2019 Bilateral full field craniocaudal and mediolateral oblique images were obtained using digital technique. This study was interpreted with the benefit of Computerized Aided Detection (CAD). FINDINGS: Breast Density: SCATTERED The breast parenchyma shows scattered fibroglandular densities. Breast parenchyma level B No suspicious masses, microcalcifications or architectural distortion is present to suggest malignancy in either breast. The visualized axillae are unremarkable. IMPRESSION: No mammographic evidence of malignancy. BI-RADS CATEGORY: 1 NEGATIVE RECOMMENDED FOLLOW-UP: 12M 12 MONTH FOLLOW-UP Annual screening mammography is recommended, unless clinically indicated sooner based on symptoms or change in physical exam. PQRS compliance statement: Patient information was entered into a reminder system with a target due date for the next mammogram. Mammography is a sensitive method for finding small breast cancers, but it does not detect them all and is not a substitute for careful clinical examination. A negative mammogram does not negate a clinically suspicious finding and should not result in delay in biopsying a clinically suspicious abnormality. "Our facility is accredited by the [employer] Mammography Program."
== END ==
LOC: MAMMO 07:43
PROVIDERS: ATTEND Internal Medicine
DX: Z12.31 Encounter for screening mammogram for malignant neoplasm of breast (principal)
CPT/HCPCS: 77067

== ENCOUNTER → 2021-04-19 | Outpatient (CLI) | payer MEDICAID ==
[~2021-04-19] MED LIST changes: -OMEP40CA45 PO; +OMEP40CA7 PO
--- NOTE | 2021-04-19 13:04 | RAD ---
3 views of lumbar spine without comparison for low back pain. FINDINGS: There is no fracture or acute osseous abnormality. Intervertebral disc spaces are well-main tained. There is bulky facet arthrosis involving L3-4, L4-5, and L5-S1, likely producing at least octavia e degree of neural foraminal and/or central canal stenosis. This could be better characterized with M RI. Aortoiliac atherosclerosis is seen. IMPRESSION: 1. No acute osseous or alignment abnormality of lumbar spine. 2. Bulky multilevel facet arthrosis, likely producing bony central canal and/or neural foraminal narr owing. Consider MRI. Electronically signed by: Pravin Coyle MD (04/19/2021 1:01 PM) [id number]
== END ==
LOC: RAD 08:57
PROVIDERS: ATTEND Internal Medicine
DX: M47.817 Spondylosis without myelopathy or radiculopathy, lumbosacral region (principal)
CPT/HCPCS: 72100

== ENCOUNTER → 2021-04-29 | Outpatient (CLI) | payer MEDICAID ==
--- NOTE | 2021-04-29 10:48 | KCIC ---
STUDY: MRI of the lumbar spine without contrast INDICATION: Acute low back pain with spasms. COMPARISON: CT of the lumbar spine 05/26/2019 TECHNIQUE: Multiplanar MR imaging of the lumbar spine performed without the use of intravenous contra st. FINDINGS: Within normal limits signal and configuration of the conus medullaris terminating at L1-L2. Unremarka ble cauda equina. Minimal grade 1 anterolisthesis of L4 on L5. No disc space collapse. Marrow signal is within normal l imits. Bellona subcutaneous edema at the dorsum of the lumbar spine and sacrum. Fatty infiltration of the dors al paraspinous musculature. Incompletely characterized small renal T2 hyperintense cystic foci on bot h the right and left. There is also a small T2 hypointense partially exophytic focus at the upper kanu e right kidney likely a proteinaceous/hemorrhagic cyst. Hypertrophic left adrenal gland and a small r ight adrenal gland nodule better appreciated on the comparison CT. No significant change considering differences in technique. T10-T11: Incompletely characterized at the margin of the field of view. Mild disc bulge/central protr usion with estimated mild central canal stenosis. The neural foramina are not fully imaged. T11-12: Mild disc bulge and facet arthrosis. No significant central canal stenosis. Mild neural tonia inal stenosis slightly greater on the right. T12-L1: Mild facet arthrosis and ligamentum flavum hypertrophy. No significant disc bulge. Patent montez tral canal. Mild neural foraminal stenosis. L1-L2: Mild facet arthrosis and ligamentum flavum hypertrophy. No significant disc bulge. Patent cent ral canal. Mild neural foraminal stenosis. L2-L3: Mild facet arthrosis, slightly greater on the left, and mild ligamentum flavum hypertrophy. Tr carolyn disc bulge. Patent central canal. Mild neural foraminal stenosis. L3-L4: Mild/moderate left slightly more so than right facet arthrosis. Ligamentum flavum hypertrophy. Mild lobulated disc bulge. Slight deformity of the thecal sac but the central canal remains patent w ith a mid sagittal dimension over 10 mm. Mild left and minimal right neural foraminal stenosis. L4-L5: Advanced facet arthrosis. Ligamentum flavum hypertrophy. Anterolisthesis with disc uncovering and a mild superimposed disc bulge. Constriction of the thecal sac along its lateral margins. The mid sagittal dimension is within normal limits at 10 mm but canal stenosis is considered mild. Mild late ral recess stenosis on the right, image 13 series 5. Severe bilateral neural foraminal stenosis. L5-S1: Moderate left more so than right facet arthrosis. Minimal posterior disc bulge. Patent central canal and lateral recesses. Severe right and moderate/severe left neural foraminal stenosis. IMPRESSION: Multilevel degenerative changes primarily consisting of facet arthrosis as outlined in the body of th e report. Mild central canal and right lateral recess stenosis at L4-L5. Severe bilateral neural fora jeremy stenosis at L4-L5 and severe right and moderate/severe left neural foraminal stenosis at L5-S1. Electronically signed by: RICCARDO CAMPOS MD (04/29/2021 10:46 AM) [facility]
== END ==
LOC: KCIC MRI 09:11
PROVIDERS: ATTEND Internal Medicine
DX: M47.817 Spondylosis without myelopathy or radiculopathy, lumbosacral region (principal); M48.07 Spinal stenosis, lumbosacral region; R60.0 Localized edema; E27.9 Disorder of adrenal gland, unspecified; M51.25 Other intervertebral disc displacement, thoracolumbar region; M48.05 Spinal stenosis, thoracolumbar region; M47.815 Spondylosis without myelopathy or radiculopathy, thoracolumbar region
CPT/HCPCS: 72148

== ENCOUNTER → 2021-07-09 | Outpatient (CLI) | payer MEDICAID ==
--- NOTE | 2021-07-09 11:01 | RAD ---
Digital Mammogram Bilateral History: Routine screening Technique: 2-D digital CC and MLO views were obtained. CAD - computer aided detection was utilize d. Comparison: Mammograms from 06/14/2020, 06/06/2019, 06/03/2018. Findings: Breast Tissue Density B : There are scattered areas of fibroglandular density There are no suspicious masses, malignant appearing calcifications, or areas of architectural distort ion. Impression: No evidence of malignancy. Assessment: BI-RADS Category 1: Negative. Normal interval followup. The patient will receive a letter with the results in the mail. Patient information will be entered i nto the mammography reminder system with a target recall date for the next mammogram. A reminder jakob er will be generated. Electronically signed by: Swati Downing MD (07/09/2021 10:59 AM) [id number]
== END ==
LOC: MAMMO 08:15
PROVIDERS: ATTEND Internal Medicine
DX: Z12.31 Encounter for screening mammogram for malignant neoplasm of breast (principal)
CPT/HCPCS: 77067

== ENCOUNTER → 2021-07-25 | Outpatient (CLI) | payer MEDICAID ==
--- NOTE | 2021-07-26 17:05 | CARD ---
MR#: [id number] Date of Study: 07/25/2021 Ordering Physician: ROLAN MCKEON, Referring Physician: Juvenal LANE: Stefano Aviles [facility] APPROVED REPORT EXAM: Two-dimensional and M-mode echocardiogram with Doppler and color Doppler. Other Information Quality : AverageHR: 85bpm Rhythm : NSRTechnically limited study due to body habitus. INDICATION Chronic diastolic heart failure. RISK FACTORS Hypertension Obesity 2D DIMENSIONS Left Atrium(2D)4.8 (1.6-4.0cm)IVSd1.1 (0.7-1.1cm) Aortic Root(2D)3.4 (2.0-3.7cm)LVDd5.1 (3.9-5.9cm) LVOT Diameter2.0 (1.8-2.4cm)PWd1.0 (0.7-1.1cm) LA Iutibq11 (18-58mL)LVDs3.2 (2.5-4.0cm) FS (%) 37.5 %SV82.9 ml LVEF(%)67.2 (>50%) Aortic Valve AoV Peak Mateo.170.5cm/sAoV VTI28.1cm AO Peak GR.11.6mmHgLVOT Peak Mateo.112.9cm/s LVOT VTI 21.62cmAO Mean GR.6mmHg FRANCIE (VMAX)1.25hs4QWK (VTI)2.52cm2 Mitral Valve MV E Svsddthk64.8cm/sMV DECEL [id number] MV A Mebbfgjb682.1cm/sMV NSW11wh E/A Ratio0.7MVA (PHT)3.28cm2 TDI E/Lateral E'10.0E/Medial E'11.1 Pulmonary Valve PV Peak Dljrihnq110.3cm/sPV Peak Grad.5mmHg Tricuspid Valve TR P. Ymxjxqkp054ut/sTR Peak Gr.42mmHg Pulmonary Vein S1 Worowqwj46.8cm/sD2 Rchtwavh58.5cm/s LEFT VENTRICLE The left ventricle is normal size. There is normal left ventricular wall thickness. The left ventricu lar systolic function is normal and the ejection fraction is within normal range. EF 55% There is nor mal LV segmental wall motion. Transmitral Doppler flow pattern is Grade I-abnormal relaxation pattern . No left ventricle thrombus noted on this study. There is no ventricular septal defect visualized. T here is no left ventricular aneurysm. There is no mass noted in the left ventricle. RIGHT VENTRICLE The right ventricle is normal size. There is normal right ventricular wall thickness. The right ventr icular systolic function is normal. ATRIA The left atrium is mildly dilated. The right atrium size is normal. The interatrial septum is intact with no evidence for an atrial septal defect or patent foramen ovale as noted on 2-D or Doppler imagi ng. AORTIC VALVE The aortic valve is normal in structure and function. Doppler and Color Flow revealed no significant aortic regurgitation. There is no significant aortic valvular stenosis. There is no aortic valvular v egetation. MITRAL VALVE The mitral valve is normal in structure and function. There is no evidence of mitral valve prolapse. There is no mitral valve stenosis. Doppler and Color Flow revealed no mitral valve regurgitation note d. TRICUSPID VALVE The tricuspid valve is normal in structure and function. Doppler and Color Flow revealed trace tricus pid regurgitation. The PA pressure was estimated at 47 mmHg. There is no tricuspid valve prolapse or vegetation. There is no tricuspid valve stenosis. PULMONIC VALVE Doppler and Color Flow revealed no pulmonic valvular regurgitation. There is no pulmonic valvular rivas nosis. GREAT VESSELS The aortic root is normal in size. The ascending aorta is normal in size. The IVC is normal in size a nd collapses >50% with inspiration. PERICARDIAL EFFUSION There is no pleural effusion. There is no evidence of significant pericardial effusion. Critical Notification Critical Value: No <Conclusion> The left ventricular systolic function is normal and the ejection fraction is within normal range. EF 55% There is normal LV segmental wall motion. Doppler and Color Flow revealed trace tricuspid regurgitation. The PA pressure was estimated at 47 mm Hg. Signed by : Davie Moore, Electronically Approved : 07/26/2021 17:05:17
== END ==
LOC: ECHO 08:14
PROVIDERS: ATTEND Internal Medicine Cardiovascular Disease
DX: I50.32 Chronic diastolic (congestive) heart failure (principal)
CPT/HCPCS: 93306; C8929